=== PATIENT | male | born 1995 | race African-American/Black ===

== ENCOUNTER 2016-06-28 03:36 | Emergency (ER) | payer SELFPAY ==
[2016-06-28] MEDS ORDERED: CIPROFLOXACIN-HC OTIC SUSP 10 ML AS ONE (04:49)
--- NOTE | 2016-06-28 04:52 | ER Document Report ---
ED General - General Chief Complaint: Ear Pain Stated Complaint: EAR PAIN Notes: Patient is a 21-year-old male who presents with complaint of fullness and pain in left ear. He also feels his sounds are muffled. He did go swimming recently. Symptoms started after swimming. No fevers. No vomiting. No cough. No other complaints at this time. TRAVEL OUTSIDE OF THE [place] IN LAST 30 DAYS: No - Related Data Allergies/Adverse Reactions: Penicillins Adverse Reaction (Severe, Verified 09/11/15 22:47) Past Medical History - Social History Smoking Status: Never Smoker Frequency of alcohol use: None Drug Abuse: None Family History: Reviewed & Not Pertinent Patient has suicidal ideation: No Patient has homicidal ideation: No Renal/ Medical History: Denies: Hx Peritoneal Dialysis - Immunizations Immunizations up to date: Yes Review of Systems - Review of Systems Notes: My Normal Review Basic REVIEW OF SYSTEMS: CONSTITUTIONAL : Denies fever, chills, or sweats. Denies recent illness. EENT: Left ear fullness. RESPIRATORY: Denies cough, cold, or chest congestion. Denies shortness of breath, difficulty breathing, or wheezing. GASTROINTESTINAL: Denies abdominal pain. Denies nausea, vomiting, or diarrhea. Denies constipation. Last BM: SKIN: Denies rash or skin lesions. NEUROLOGICAL: Denies altered mental status or loss of consciousness. Denies headache. Denies weakness or paralysis or loss of use of either side. Denies problems with gait or speech. Denies sensory or motor loss. ALL OTHER SYSTEMS REVIEWED AND NEGATIVE. Physical Exam - Notes Notes: General Appearance: Well nourished, alert, cooperative, no acute distress, no obvious discomfort. Vitals: reviewed, See vital signs table. Head: no swelling or tenderness to the head Eyes: PERRL, EOMI, Conjuctiva clear Mouth: No decreasd moisture Throat: No tonsillar inflammation, No airway obstruction, No lymphadenopathy Ears: Right ear canal and TM is normal appearing. Left ear canal is inflamed and slightly swollen. Left TM is injected with swelling of the canal around it. No redness or swelling over the mastoid. Findings consistent with early otitis media from swimmer's ear. Neck: Supple, no neck tenderness Neuro: speech clear, oriented x 3, normal affect, responds appropriately to questions. Course - Transfer of Care Notes: 06/28/16 05:01 Patient is inflammation and swelling in the ear canal itself periods consistent with otitis media from his recent swimming. Easily placed on Ciprodex eardrops. He is encouraged return to ER if has any redness or swelling near the mastoid, increasing pain, or fevers. Patient agrees with plan will be discharged home. Dictation of this chart was performed using voice recognition software; therefore, there may be some unintended grammatical errors. Discharge - Discharge Clinical Impression: Otitis externa Qualifiers: Otitis externa type: swimmer's ear Laterality: left Chronicity: acute Qualified Code(s): H60.332 - Swimmer's ear, left ear Condition: Good Disposition: HOME, SELF-CARE Additional Instructions: Otitis Externa You have otitis externa -- an infection of the outer ear canal. This can be very painful. It's sometimes called "swimmer's ear," because it often occurs after prolonged water exposure. Many things, such as earwax and dirt in the ear, can contribute to it. The usual treatment is antibiotic/antiinflammatory ear drops. Avoid getting water in the ear. Outer ear infections often take longer to heal than you might expect. Some tenderness and ache in the ear may persist for about two weeks. See your physician if you fail to improve as expected. Call the doctor at once if you develop fever, increasing swelling (particularly if it makes your ear "poke out"), severe headache, stiff neck, or decreased hearing. Please return to ER immediately if you have severe worsening pain, fevers, or any redness around the ER or pain behind the ear over the mastoid process. Mastoid process is the small bone you feel underneath the skin that is just behind the ear. Please use the Cipro otic eardrops as one to two drops in the left ear twice a day for 7 days.
[2016-06-28] MEDS ORDERED: CIPROFLOXACIN-HC OTIC SUSP 10 ML ONE (05:28)
[2016-06-28 05:57] VITALS: BP 132/76
== END 2016-06-28 05:35 | disposition home or self-care (01) ==
LOC: ER 03:36
DX: H60.332 Swimmer's ear, left ear (principal)
CPT/HCPCS: 99282; J3490

== ENCOUNTER 2019-11-02 20:41 | Emergency (ER) | payer SELFPAY | END 2019-11-02 21:43 | disposition left against medical advice (07) | LOC: ER 20:41 | DX: Z53.21 Procedure and treatment not carried out due to patient leaving prior to being seen by health care provider (principal) ==